=== PATIENT | female | born 1965 | race Caucasian/White ===

== ENCOUNTER 2021-01-02 22:56 | Emergency (ER) | payer BC, SELFPAY ==
--- NOTE | ~2021-01-02 | XR_ITS ---
EXAMINATION: XR knee LT 3V DATE: 01/03/2021 01:52 INDICATION: Posterior and medial left knee pain TECHNIQUE: Anteroposterior, oblique and crosstable lateral views of the left knee were obtained COMPARISON: None. FINDINGS: Alignment is normal. No fracture. Joint spaces appear normal on nonweightbearing imaging. No joint e ffusion/layering lipohemarthrosis. Soft tissues are unremarkable. IMPRESSION: 1. . Negative left knee radiographs. Reviewed, dictated and finalized at location A.
[2021-01-02 23:00] VITALS: BP 163/79; PULSE 98; RESP 16; TEMP 36.2; O2SAT 100
--- NOTE | 2021-01-03 02:03 | ED.EXTPRO ---
HPI - Extremity Problem General Chief complaint: Extremity Problem,Nontraumatic Stated complaint: left leg/knee-knot with pain Time Seen by Provider: 01/03/21 01:59 Mode of arrival: ambulatory Limitations: no limitations History of Present Illness HPI Narrative: 55-year-old with a history of fibromyalgia, DJD of the back here with complaints of left knee pain started few days ago she states that pain radiates down to her ankle. She denies any fall. Patient states that it is very tender to touch. MD Complaint: joint paint Onset (ago): day(s) (4) Pain Consistency: constant Location: knee (Left) Quality: aching Exacerbating factors: nothing Associated symptoms: denies other symptoms Related Data Allergies Allergy/AdvReac Type Severity Reaction Status Date / Time nabumetone [From Relafen] Allergy Rash Verified 01/03/21 01:24 Review of Systems Review of Systems: All systems reviewed & are unremarkable except as noted in HPI and below Constitutional: Constitutional: Reports no additional constitutional complaints ENT: Reports system reviewed and no additional complaints, except as documented Cardiovascular: Cardiovascular: Reports no additional cardiovascular complaints Respiratory: Respiratory: Reports no additional respiratory complaints Gastrointestinal: Gastrointestinal: Reports no additional gastrointestinal complaints Musculoskeletal: Musculoskeletal: Reports as per HPI Neurologic: Reports system reviewed and no additional complaints, except as documented Exam Narrative: Exam Narrative: GENERAL: Well-appearing, well-nourished, and in no acute distress. HEAD: Normocephalic, atraumatic. EYES: PERRLA and EOMI. ENT: Nares clear, no rhinorrhea or epistaxis. Mucous membranes moist. NECK: Supple. CHEST: Clear to auscultation. No respiratory distress. HEART: Regular rate and rhythm. No murmur heard. Normal peripheral pulses. EXTREMITIES: Normal range of motion. No edema. tenderness on palpation on medial aspect of the left knee, no joint effuison SKIN: Warm, dry, no rash. NEURO: No focal deficits. Alert and oriented x3. PSYCH: Normal mood and affect. Course Course Emergency Course: Informed her about x-ray findings do not see any joint effusion. Arthritic changes noted advised patient to continue home medication follow-up with the orthopedic doctor Vital Signs Vital signs: Vital Signs Temperature 36.2 C L 01/02/21 23:00 Pulse Rate 98 01/02/21 23:00 Respiratory Rate 16 01/02/21 23:00 Blood Pressure 163/79 H 01/02/21 23:00 Pulse Oximetry 100 01/02/21 23:00 Temperature 36.2 C L 01/02/21 23:00 Pulse Rate 98 01/02/21 23:00 Respiratory Rate 16 01/02/21 23:00 Blood Pressure 163/79 H 01/02/21 23:00 Pulse Oximetry 100 01/02/21 23:00 MDM - Extremity (Nontraumatic) Imaging Data My impression: DJD of the knee , no effusion Discharge Plan Discharge Clinical Impression: Anterior knee pain Qualifiers: Laterality: left Qualified Code(s): M25.562 - Pain in left knee Patient Disposition: Home, Self-Care Condition: Stable Instructions: Antibiotic Form, Knee Sprain (ED), Arthralgia (ED) Follow-up/Referrals: Anastacio Cabrera MD [Physician] - SURINDER,ELIGIO Adame M.D. [Primary Care Provider] - Time of Disposition: 02:07
[2021-01-03 02:31] VITALS: BP 128/78; PULSE 81; RESP 16; TEMP 37; O2SAT 100
== END 2021-01-03 02:33 | disposition home or self-care (01) ==
PROVIDERS: Emergency Provider Family Medicine; PCP Internal Medicine
DX: M25.562 Pain in left knee (principal); M79.7 Fibromyalgia; M47.9 Spondylosis, unspecified
CPT/HCPCS: 73562; 99283

== ENCOUNTER → 2023-06-26 13:42 | Outpatient (CLI) | payer OTHER, SELFPAY ==
--- NOTE | ~2023-06-26 | MR_ITS ---
EXAMINATION: MR shoulder LT w con DATE: 06/26/2023 14:58 INDICATION: Left shoulder pain TECHNIQUE: Magnetic resonance imaging (MRI) of the left shoulder was performed following intra-artic ular gadolinium contrast injection and without intravenous contrast. Details of the glenohumeral join t injection have been dictated separately. Sequences included axial T2-weighted FS FSE, axial T1-lora ghted FS FSE, coronal oblique T1-weighted FS FSE, coronal oblique T2-weighted FSE, sagittal T2-weight ed FS FSE, sagittal T1-weighted FSE, and ABER (abduction external rotation) T1-weighted FS FSE. COMPARISON: None. FINDINGS: Coracoacromial arch: The acromion undersurface is minimally curved in morphology (type I-II). The coracoacromial ligament is normal. Mild acromioclavicular osteoarthritis with small inferiorly directed osteophytes which is mild mass effect upon the cephalad surface of the distal supraspinatus muscle belly. Rotator cuff: Mild infraspinatus tendinopathy without tear. The supraspinatus and teres minor tendon are normal. Mi nimal subscapularis tendinopathy with small intrasubstance split tear in the cephalad third of the di stal subscapularis tendon extending between the superficial portion of the tendon which remains attac hed the transverse humeral ligament and the deeper portion of the tendon attached to the lesser tuber osity. Small amount of contrast can be seen extending approximately 1 cm medially from the footplate on the ABER sequence. Normal rotator cuff muscle bulk and signal. Biceps tendon, glenoid labrum and glenohumeral cartilage: Long head of the biceps tendon is normal. Normal sublabral foramen at the anterosuperior glenoid with small sublabral sulcus extending posteriorly to the 12:00 position. Glenohumeral cartilage is normal . Bones and other: Normal marrow signal with no edema, fracture or abnormal marrow replacing process. Minimal cystic hunter nge at the cephalad aspect of the lesser tuberosity. No abnormal fluid signal in the subacromial/subd eltoid bursa to suggest bursitis. IMPRESSION: 1. Mild infraspinatus and subscapularis tendinopathy with small intrasubstance longitudinal split tea r at the cephalad aspect of the distal subscapularis tendon. 2. Mild acromioclavicular osteoarthritis. Reviewed, dictated and finalized at location A. IMPRESSION: 1. Mild infraspinatus and subscapularis tendinopathy with small intrasubstance longitudinal split tear at the cephalad aspect of the distal subscapularis tend on. 2. Mild acromioclavicular osteoarthritis.
--- NOTE | ~2023-06-26 | XR_ITS ---
EXAMINATION: XR fl inj shoulder LT - MR/CT DATE: 06/26/2023 14:31 INDICATION: Left shoulder pain TECHNIQUE: A time-out was performed to verify the patient's name, date of , and procedure to b e performed. The procedure including the risks and benefits was discussed with the patient. Risks dis cussed included bleeding and infection. The patient understood the risks and agreed to proceed. The s kin overlying the left glenohumeral joint was prepared and draped in usual sterile fashion. The skin and subcutaneous tissues were infiltrated with 1% lidocaine for local anesthesia. A 22 G needle was advanced under fluoroscopic guidance into the joint. Injectate consisting of 10 mL of 1:200 0.1 mmol/ kg Multihance, 1:3 1% lidocaine, and 1/5 Omnipaque 350 was instilled. The needle was removed and the entry site was cleaned and dressed. There were no immediate complications. Fluoroscopy exposure time was 0.2 minutes. The DAP for this procedure was 0.69 Gycm2. FINDINGS: Real-time fluoroscopy demonstrates the needle and contrast in the left glenohumeral joint. IMPRESSION: 1. Successful left glenohumeral joint injection of contrast for subsequent MR arthrography. Reviewed, dictated and finalized at location B. IMPRESSION: 1. Successful left glenohumeral joint injection of contrast for subsequent MR a rthrography.
== END ==
PROVIDERS: PCP Orthopaedic Surgery; Visit Provider Orthopaedic Surgery
DX: M19.012 Primary osteoarthritis, left shoulder (principal)
CPT/HCPCS: 23350; 73222; A9577; Q9967

== ENCOUNTER 2024-01-24 16:05 | Outpatient (CLI) | payer OTHER, SELFPAY ==
--- NOTE | ~2024-01-24 | CT_ITS ---
EXAMINATION: CT cervical spine wo con DATE: 01/24/2024 16:27 INDICATION: Pseudoarthrosis of cervical spine. Cervical myelopathy. TECHNIQUE: Computed tomography (CT) of the cervical spine was performed without intravenous contrast. Automated exposure control and iterative reconstruction technique were employed. The dose-length pro duct was 442.21 mGy-cm. COMPARISON: Cervical spine MRI 01/24/2024 FINDINGS: There is kyphosis of cervical spine. There is 4 degrees levocurvature of cervical spine. Th ere are changes of anterior fusion procedure from C4 to C7 with healed interbody bone graft and anter ior plate and screws. The C5 screws do not reach the bone due to the kyphosis of the spine. Vertebral body heights are normal. Intervertebral disc heights are normal in cervical spine. The following dis c levels are specifically discussed: C2-C3: There is no uncovertebral joint osteoarthritis. There is severe bilateral facet joint osteoart hritis. There is mild bilateral neural foraminal stenosis. There is no central canal stenosis. C3-C4: There is mild bilateral uncovertebral joint osteoarthritis. There is severe bilateral facet loree int osteoarthritis. There is mild bilateral neural foraminal stenosis. There is mild central canal st enosis. C4-C5: There is no uncovertebral joint hypertrophy. There is ankylosis of the facet joints with moder ate right and mild left facet joint hypertrophy. There is mild right neural foraminal stenosis. There is mild central canal stenosis. C5-C6: There is no uncovertebral joint hypertrophy. There is ankylosis of the facet joints with mild bilateral facet joint hypertrophy. There is mild bilateral neural foraminal stenosis. There is mild c entral canal stenosis. C6-C7: There is mild bilateral uncovertebral joint hypertrophy. There is ankylosis of the facet joint s with mild bilateral facet joint hypertrophy. There is mild bilateral neural foraminal stenosis. The re is no central canal stenosis. C7-T1: There is no uncovertebral joint osteoarthritis. There is severe bilateral facet joint osteoart hritis. There is mild bilateral neural foraminal stenosis. There is no central canal stenosis. IMPRESSION: 1. Mild cervical spondylosis. 2. Anterior fusion procedure from C4 to C7. Reviewed, dictated and finalized at location E.
--- NOTE | ~2024-01-24 | MR_ITS ---
EXAMINATION: MR cervical spine wo con DATE: 01/24/2024 17:44 INDICATION: Cervical myelopathy. TECHNIQUE: Magnetic resonance imaging (MRI) of the cervical spine was performed without intravenous c ontrast. COMPARISON: None FINDINGS: There is kyphosis of cervical spine. There are changes of anterior fusion procedure from C4 to C7 with healed interbody bone graft and anterior plate and screws. Vertebral body heights are nor mal. Intervertebral disc heights are normal in cervical spine. The spinal cord signal intensity is no rmal. The following disc levels are specifically discussed: C2-C3: The disc does not extend beyond the endplate margin. There is no uncovertebral joint osteoarth ritis. There is severe bilateral facet joint osteoarthritis. There is mild bilateral neural foraminal stenosis. There is no central canal stenosis. C3-C4: There is a central protrusion. There is mild lateral uncovertebral joint osteoarthritis. There is severe bilateral facet joint osteoarthritis. There is mild bilateral neural foraminal stenosis. T here is mild central canal stenosis. C4-C5: There is no uncovertebral joint hypertrophy. There is moderate right and mild left facet joint hypertrophy. There is mild right neural foraminal stenosis. There is mild central canal stenosis. C5-C6: There is no uncovertebral joint hypertrophy. There is mild bilateral facet joint hypertrophy. There is mild bilateral neural foraminal stenosis. There is mild central canal stenosis. C6-C7: There is mild bilateral uncovertebral joint hypertrophy. There is mild bilateral facet joint h ypertrophy. There is mild bilateral neural foraminal stenosis. There is no central canal stenosis. C7-T1: There is a central extrusion. There is no uncovertebral joint osteoarthritis. There is severe bilateral facet joint osteoarthritis. There is mild bilateral neural foraminal stenosis. There is no central canal stenosis. IMPRESSION: 1. Mild cervical spondylosis. 2. Anterior fusion procedure from C4 to C7. Reviewed, dictated and finalized at location E.
== END 2024-01-24 16:06 | disposition home or self-care (01) ==
DX: M43.02 Spondylolysis, cervical region (principal); S12.9XXA Fracture of neck, unspecified, initial encounter; X58.XXXA Exposure to other specified factors, initial encounter; Z98.1 Arthrodesis status
CPT/HCPCS: 72125; 72141